=== PATIENT | female | born 1950 | race Caucasian/White ===

== ENCOUNTER 2016-09-27 17:14 | Emergency (ER) | payer OTHER ==
[2016-09-27] MEDS ORDERED: HYDROmorphONE/DILAUDID 1 MG/ML SYR IVP ONE (17:34)
[2016-09-27] MEDS ORDERED: NS 1,000 ML IV ONE (17:34)
[2016-09-27] MEDS ORDERED: ONDANSETRON 4 MG/2 ML VIAL IVP ONE (17:34)
--- NOTE | 2016-09-27 17:37 | EDPHY ---
H & P Time Seen by Provider: 09/27/16 17:25 HPI/ROS: CHIEF COMPLAINT: Abdominal pain HISTORY OF PRESENT ILLNESS: the patient is a 66-year-old female who comes to the emergency department requesting a CT scan to evaluate for diverticulitis. She has a history of diverticulitis. She is prescribed antibiotics by Dr. Yang that she can take p.r.n. for pain but she states that she is getting tired of this and would like to have her sigmoid removed. Dr. Yang recommended she come here for CT scan. She has chronic pain in the region but it increased 2 days ago. She states that she had a low-grade fever yesterday unmeasured. She has not had any vomiting or diarrhea. REVIEW OF SYSTEMS: Constitutional: denies: chills, fever, recent illness, recent injury EENTM: denies: blurred vision, double vision, nose congestion Respiratory: denies: cough, shortness of breath Cardiac: denies: chest pain, irregular heart rate, lightheadedness, palpitations Gastrointestinal/Abdominal: See HPI Genitourinary: denies: dysuria, frequency, hematuria, pain Musculoskeletal: denies: joint pain, muscle pain Skin: denies: lesions, rash, jaundice, bruising Neurological: denies: headache, numbness, paresthesia, tingling, dizziness, weakness Hematologic/Lymphatic: denies: blood clots, easy bleeding, easy bruising Immunologic/allergic: denies: HIV/AIDS, transplant EXAM: GENERAL: Well-appearing, well-nourished and in no acute distress. HEAD: Atraumatic, normocephalic. EYES: Pupils equal round and reactive to light, extraocular movements intact, sclera anicteric, conjunctiva are normal. ENT: TMs normal, nares patent, oropharynx clear without exudates. Moist mucous membranes. NECK: Normal range of motion, supple without lymphadenopathy or JVD. LUNGS: Breath sounds clear to auscultation bilaterally and equal. No wheezes rales or rhonchi. HEART: Regular rate and rhythm without murmurs, rubs or gallops. ABDOMEN: Soft, nontender, normoactive bowel sounds. No guarding, no rebound. No masses appreciated. BACK: No CVA tenderness, no spinal tenderness, step-offs or deformities EXTREMITIES: Normal range of motion, no pitting or edema. No clubbing or cyanosis. NEUROLOGICAL: Cranial nerves II through XII grossly intact. Normal speech, normal gait. 5/5 strength, normal movement in all extremities, normal sensation PSYCH: Normal mood, normal affect. SKIN: Warm, dry, normal turgor, no visible rashes or lesions. Source: Patient Exam Limitations: No limitations - Medical/Surgical History Hx Asthma: No Hx Chronic Respiratory Disease: Yes Hx Diabetes: No Hx Cardiac Disease: No Hx Renal Disease: No Hx Cirrhosis: No Hx Alcoholism: No Hx HIV/AIDS: No Hx Splenectomy or Spleen Trauma: No Other PMH: Diverticulitis, spinal surgeries, parathyroidectomy, COPD, Asthma, salivary gland dysfunction, melanoma - Family History Significant Family History: No pertinent family hx - Social History Smoking Status: Current every day smoker Alcohol Use: Sober Drug Use: None Constitutional: Initial Vital Signs Temperature (C) 37.2 C 09/27/16 17:36 Heart Rate 95 09/27/16 17:36 Respiratory Rate 20 09/27/16 17:36 Blood Pressure 138/91 H 09/27/16 17:36 O2 Sat (%) 93 09/27/16 17:36 O2 Delivery Mode Room Air Allergies/Adverse Reactions: Penicillins Allergy (Intermediate, Verified 09/27/16 17:33) Rash pregabalin [From Lyrica] Allergy (Intermediate, Verified 09/27/16 17:33) EXTREMITIES EDEMA tramadol Allergy (Unknown, Verified 09/27/16 17:33) morphine Allergy (Verified 09/27/16 17:33) BODY SPASMS ENVIRONMENTAL Allergy (Mild, Uncoded 12/26/14 21:26) STUFFY NOSE/COUGH/SORE THROAT Home Medications: Medication Instructions Recorded Ambien 10/20/10 BUPROPION HCL 10/20/10 Calcium Carbonate 10/20/10 Cipro 10/20/10 GINSENG 10/20/10 GLUCOSAMINE HCL 10/20/10 MAGNESIUM 10/20/10 MSM 10/20/10 Multivitamins,Therapeutic 10/20/10 OXYCODONE HCL 10/20/10 Pilocarpine HCl 10/20/10 Supplements 10/20/10 VITAMIN D 10/20/10 Valium 10/20/10 Amoxicillin/Clavulanate Pot 875 mg PO BID #20 tab 09/27/16 [Augmentin 875 MG TAB (RX)] Disulfiram 09/27/16 Medical Decision Making - Diagnostics Imaging Results: Imaging Impressions Abdomen CT 09/27/16 17:34 Impression: 1. Extensive colonic diverticulosis, without definite diverticulitis. 2. Large amount of fecal material in the right colon, query constipation. 3. See above report for additional findings. Results called and discussed with Yaya Roth M.D., on September 27, 2016 at 1917 hours. ED Course/Re-evaluation: 7:20 p.m. we discussed the CT lab results which are reassuring. I will start the patient on Augmentin for her pain and frequent bouts of diverticulitis. She is happy with this plan. She is planning to follow up with Dr. Glen Escobar for partial colectomy. She is not allergic to penicillins. She states that she had penicillin a month ago and did fine. Differential Diagnosis: Partial list of the Differential diagnosis considered include but were not limited to; diverticulitis, hernia and although unlikely based on the history and physical exam, I also considered appendicitis, ischemia, aneurysm, dissection. I discussed these differential diagnoses and the plan with the patient as well as the usual and expected course. The patient understands that the diagnosis is provisional and that in medicine we are not always correct and that further workup is often warranted. Usual and customary warnings were given. All of the patient's questions were answered. The patient was instructed to return to the emergency department should the symptoms at all worsen or return, otherwise to followup with the physician as we discussed. - Data Points Laboratory Results: Laboratory Results 09/27/16 17:45 09/27/16 17:45 09/27/16 09/27/16 17:45 17:45 WBC 6.24 10^3/uL 10^3/uL (3.80-9.50) RBC 4.39 10^6/uL 10^6/uL (4.18-5.33) Hgb 13.9 g/dL g/dL (12.6-16.3) Hct 40.3 % % (38.0-47.0) MCV 91.8 fL fL (81.5-99.8) MCH 31.7 pg pg (27.9-34.1) MCHC 34.5 g/dL g/dL (32.4-36.7) RDW 12.3 % % (11.5-15.2) Plt Count 276 10^3/uL 10^3/uL (150-400) MPV 10.6 fL fL (8.7-11.7) Neut % (Auto) 54.6 % % (39.3-74.2) Lymph % (Auto) 32.5 % % (15.0-45.0) Jessamine % (Auto) 9.8 % % (4.5-13.0) Eos % (Auto) 1.9 % % (0.6-7.6) Baso % (Auto) 1.0 % % (0.3-1.7) Nucleat RBC Rel Count 0.0 % % (0.0-0.2) Absolute Neuts (auto) 3.41 10^3/uL 10^3/uL (1.70-6.50) Absolute Lymphs (auto) 2.03 10^3/uL 10^3/uL (1.00-3.00) Absolute Monos (auto) 0.61 10^3/uL 10^3/uL (0.30-0.80) Absolute Eos (auto) 0.12 10^3/uL 10^3/uL (0.03-0.40) Absolute Basos (auto) 0.06 10^3/uL 10^3/uL (0.02-0.10) Absolute Nucleated RBC 0.00 10^3/uL 10^3/uL (0-0.01) Immature Gran % 0.2 % % (0.0-1.1) Immature Gran # 0.01 10^3/uL 10^3/uL (0.00-0.10) Sodium 141 mEq/L mEq/L (134-144) Potassium 4.4 mEq/L mEq/L (3.5-5.2) Chloride 102 mEq/L mEq/L (97-110) Carbon Dioxide 25 mEq/l mEq/l (22-31) Anion Gap 14 mEq/L mEq/L (8-16) BUN 19 mg/dL mg/dL (7-23) Creatinine 0.8 mg/dL mg/dL (0.6-1.0) Estimated GFR > 60 Glucose 126 mg/dL H mg/dL (70-100) Calcium 9.9 mg/dL mg/dL (8.5-10.4) Total Bilirubin 0.5 mg/dL mg/dL (0.1-1.4) Conjugated Bilirubin 0.2 mg/dL mg/dL (0.0-0.5) Unconjugated Bilirubin 0.3 mg/dL mg/dL (0.0-1.1) AST 41 IU/L IU/L (14-46) ALT 75 IU/L H IU/L (9-52) Alkaline Phosphatase 69 IU/L IU/L (38-126) Total Protein 7.4 g/dL g/dL (6.3-8.2) Albumin 4.5 g/dL g/dL (3.5-5.0) Lipase 80.0 IU/L IU/L (23-300) Medications Given: Discontinued Medications Amoxicillin/Clavulanate Potassium (Augmentin 875mg) 875 mg PO EDNOW ONE PRN Reason: Protocol Stop: 09/27/16 19:22 Last Admin: 09/27/16 19:51 Dose: 875 mg Hydromorphone HCl (Dilaudid) 0.5 mg IVP EDNOW ONE Stop: 09/27/16 17:35 Last Admin: 09/27/16 18:01 Dose: 0.5 mg Sodium Chloride (Ns) 1,000 mls @ 0 mls/hr IV ONCE ONE PRN Reason: Wide Open Stop: 09/27/16 17:35 Last Admin: 09/27/16 18:02 Dose: 1,000 mls Ondansetron HCl (Zofran) 4 mg IVP EDNOW ONE Stop: 09/27/16 17:35 Last Admin: 09/27/16 18:01 Dose: 4 mg Departure - Departure Disposition: Home, Routine, Self-Care Clinical Impression: Diverticulitis Qualifiers: Diverticulitis site: large intestine Diverticulitis bleeding: without bleeding Diverticulitis complication: with perforation Qualified Code(s): K57.20 - Diverticulitis of large intestine with perforation and abscess without bleeding Condition: Fair Instructions: Diverticulitis (ED) Referrals: Gibson Yang MD [Primary Care Provider] - As per Instructions Glen Escobar MD [Medical Doctor] - As per Instructions Prescriptions: Amoxicillin/Clavulanate Pot [Augmentin 875 MG TAB (RX)] 875 mg PO BID #20 tab
[2016-09-27 17:38] VITALS: RESP 20
[2016-09-27] MEDS ORDERED: IOPAMIDOL (ISOVUE-300) 100 ML BTL IV ONE (17:40)
[2016-09-27 17:56] LABS: % IMMATURE GRANULYOCYTES 0.2 % (0.0-1.1); ABSOLUTE IMMATURE GRANULOCYTES 0.01 10^3/uL (0.00-0.10); ADD DIFF? NO; ADD MORPH? NO; ADD SCAN? NO; ATYPICAL LYMPHOCYTE FLAG 10 (0-99); FRAGMENT RBC FLAG 0 (0-99); HEMATOCRIT 40.3 % (38.0-47.0); HEMOGLOBIN 13.9 g/dL (12.6-16.3); LEFT SHIFT FLG 0 (0-99); LIPEMIA HEMOLYSIS FLAG 90 (0-99); MEAN CELL HEMOGLOBIN 31.7 pg (27.9-34.1); MEAN CELL HEMOGLOBIN CONCENTR. 34.5 g/dL (32.4-36.7); MEAN CELL VOLUME 91.8 fL (81.5-99.8); MEAN PLATELET VOLUME 10.6 fL (8.7-11.7); PLATELET CLUMPS FLAG 10 (0-99); PLATELET COUNT 276 10^3/uL (150-400); RED BLOOD CELL COUNT 4.39 10^6/uL (4.18-5.33); RED CELL DISTRIBUTION WIDTH 12.3 % (11.5-15.2)
[2016-09-27 18:10] LABS: ALANINE AMINOTRANSFERASE 75 IU/L (9-52); ALBUMIN 4.5 g/dL (3.5-5.0); ALKALINE PHOSPHATASE 69 IU/L (38-126); ANION GAP 14 mEq/L (8-16); ASPARTATE AMINOTRANSFERASE 41 IU/L (14-46); BILIRUBIN,TOTAL 0.5 mg/dL (0.1-1.4); BILIRUBIN-CONJUGATED 0.2 mg/dL (0.0-0.5); BILIRUBIN-UNCONJUGATED 0.3 mg/dL (0.0-1.1); CALCIUM 9.9 mg/dL (8.5-10.4); CARBON DIOXIDE 25 mEq/l (22-31); CHLORIDE 102 mEq/L (97-110); CREATININE 0.8 mg/dL (0.6-1.0); GLOMERULAR FILTRATION RATE > 60; GLUCOSE 126 mg/dL (70-100); POTASSIUM 4.4 mEq/L (3.5-5.2); SODIUM 141 mEq/L (134-144); TOTAL PROTEIN 7.4 g/dL (6.3-8.2)
[2016-09-27] MEDS ORDERED: AMOXICILLIN/CLAVULANATE POT 875/125 MG TAB PO ONE (19:21)
[2016-09-27 19:56] VITALS: BP 144/78; PULSE 65; TEMP 97.7; O2SAT 95
== END 2016-09-27 20:01 | disposition home or self-care (01) ==
LOC: CED 17:14
DX: K57.20 Diverticulitis of large intestine with perforation and abscess without bleeding (principal); F17.200 Nicotine dependence, unspecified, uncomplicated; J45.909 Unspecified asthma, uncomplicated; Z85.820 Personal history of malignant melanoma of skin
CPT/HCPCS: 74177-PO; 80048-PO; 80076-PO; 83690-PO; 85025-PO; 96374; J1170; J2405; Q9967

== ENCOUNTER 2016-12-14 08:21 | Inpatient (IN) | payer OTHER ==
--- NOTE | 2016-12-14 07:25 | PDGENHP ---
History and Physical - Chief Complaint recurrent diverticulitis - History of Present Illness 66-year-old female referred to me for long-standing history of diverticulitis. Patient states that her initial episode was 20 years ago, at that point in time she does state that she was hospitalized and placed on IV antibiotics. Since that initial episode, the patient states that she tended have at least a yearly episode until the past 2 years where she states that they have been more frequent. She states that over the past few years she has been on antibiotics at least a times on outpatient basis. Her worse flare was sometime in September. Since that time, the patient has been on maintenance oral antibiotic therapy. She states that if she is not on antibiotics she continues to have issues. History Information - Allergies/Home Medication List Allergies/Adverse Reactions: Penicillins Allergy (Intermediate, Verified 09/27/16 17:33) Rash pregabalin [From Lyrica] Allergy (Intermediate, Verified 09/27/16 17:33) EXTREMITIES EDEMA tramadol Allergy (Unknown, Verified 09/27/16 17:33) ciprofloxacin Allergy (Verified 12/13/16 15:50) morphine Allergy (Verified 09/27/16 17:33) BODY SPASMS ENVIRONMENTAL Allergy (Mild, Uncoded 12/26/14 21:26) STUFFY NOSE/COUGH/SORE THROAT Home Medications: Ambien 10/20/10 [Last Taken 10/19/10] BUPROPION HCL 10/20/10 [Last Taken 10/20/10] Calcium Carbonate 10/20/10 [Last Taken 10/20/10] GINSENG 10/20/10 [Last Taken 10/20/10] GLUCOSAMINE HCL 10/20/10 [Last Taken 10/20/10] MAGNESIUM 10/20/10 [Last Taken 10/20/10] Multivitamins,Therapeutic 10/20/10 [Last Taken 10/20/10] OXYCODONE HCL 10/20/10 [Last Taken 10/20/10] Pilocarpine HCl 10/20/10 [Last Taken 10/20/10] VITAMIN D 10/20/10 [Last Taken 10/20/10] Valium 10/20/10 [Last Taken 10/20/10] Acyclovir 12/13/16 [Last Taken Unknown] Albuterol 5 mg/ml INH 12/13/16 [Last Taken Unknown] Fluticasone Nasal 12/13/16 [Last Taken Unknown] Gabapentin 12/13/16 [Last Taken Unknown] Levothyroxine 12/13/16 [Last Taken Unknown] Methylphenidate 12/13/16 [Last Taken Unknown] Metronidazole 12/13/16 [Last Taken Unknown] Ranitidine HCl 12/13/16 [Last Taken Unknown] Symbicort 160-4.5 Mcg Inh (*) 12/13/16 [Last Taken Unknown] I have personally reviewed and updated: family history, medical history, social history, surgical history Past Medical History: ADD, alcoholism, anxiety, COPD, GERD, hyperparathyroidism , hypothyroidism - Surgical History Additional surgical history: Cervical fusion, EGD, fibroid ectomy, parathyroidectomy - Family History Positive for: non-pertinent - Social History Smoking Status: Heavy smoker Alcohol Use: Sober Additional social history: On Antabuse for chronic alcoholism Review of Systems ROS: 10pt was reviewed & negative except for what was stated in HPI & below Physical Exam Constitutional: no apparent distress Eyes: PERRL Ears, Nose, Mouth, Throat: moist mucous membranes Cardiovascular: regular rate and rhythym Respiratory: no respiratory distress Gastrointestinal: normoactive bowel sounds Skin: warm Musculoskeletal: full muscle strength, no muscle tenderness Neurologic: AAOx3, sensation intact bilaterally Psychiatric: interacting appropriately Lymph, Heme, Immunologic: no cervical LAD Assessment & Plan Assessment: 66-year-old female with recurrent diverticulitis Plan: I personally reviewed the patient's recent CT scan with her showing no complications at this time. Given the fact that she has recurrent disease in is now on maintenance antibiotic therapy I recommended sigmoidectomy. After explaining the risks benefits and alternatives she wishes to proceed. She will complete a bowel prep prior to the operation.
[2016-12-14] MEDS ORDERED: BUPIVACAINE/EPI 0.25% 30 ML SDV ONE (08:25)
[2016-12-14] MEDS ORDERED: ERTAPENEM 1 GM in NS 100 ML IV ONE (08:37)
[2016-12-14] MEDS ORDERED: LR 1,000 ML IV ONE (08:52)
[2016-12-14] MEDS ORDERED: LIDOCAINE 1% 2 ML INJ ID PRN (08:52)
--- NOTE | 2016-12-14 09:48 | PDANEPAE ---
ANE History of Present Illness Laparoscopic colon resection ANE Past Medical History - Cardiovascular History Hx Hypertension: No Hx Arrhythmias: No Hx Chest Pain: No Hx Coronary Artery / Peripheral Vascular Disease: No Hx CHF / Valvular Disease: No Hx Palpitations: No - Pulmonary History Hx COPD: Yes Hx Asthma/Reactive Airway Disease: Yes Hx Recent Upper Respiratory Infection: No Hx Oxygen in Use at Home: No Hx Sleep Apnea: No Sleep Apnea Screening Result - Last Documented: Positive Pulmonary History Comment: INHALERS - Neurologic History Hx Cerebrovascular Accident: No Hx Seizures: Yes Hx Dementia: No Neurologic History Comment: SEIZURE X1 YEARS AGO - ALCOHOL RELATED - Endocrine History Hx Diabetes: Yes Hypothyroid: Yes Obesity: no Endocrine History Comment: HYPOTHYROID - Renal History Hx Renal Disorders: No - Liver History Hx Hepatic Disorders: No - Neurological & Psychiatric Hx Hx Neurological and Psychiatric Disorders: Yes Neurological / Psychiatric History Comment: ANXIETY & DEPRESSION. PTSD - Cancer History Hx Cancer: Yes Cancer History Comment: MELANOMA R LEG - Congenital Disorder History Hx Congenital Disorders: No - GI History GERD: moderate Hx Gastrointestinal Disorders: Yes Gastrointestinal History Comment: GERD. HIATAL HERNIA - Other Health History Other Health History: OSTEOPENIA. DIVERTICULITIS. DIVERTICULOSIS. PRONE TO THRUSH FOLLOWING INTUBATION - Chronic Pain History Chronic Pain: Yes (BACK & NECK) - Surgical History Prior Surgeries: CERVICAL FUSION X3. LUMBAR FUSION X2. EGD W/BIOPSY. FIBROIDECTOMY. PARATHYROIDECTOMY ANE Review of Systems - Exercise capacity METS (RN): 4 METS ANE Patient History - Allergies Allergies/Adverse Reactions: Penicillins Allergy (Intermediate, Verified 09/27/16 17:33) Rash pregabalin [From Lyrica] Allergy (Intermediate, Verified 09/27/16 17:33) EXTREMITIES EDEMA tramadol Allergy (Unknown, Verified 09/27/16 17:33) ciprofloxacin Allergy (Verified 12/13/16 15:50) morphine Allergy (Verified 09/27/16 17:33) BODY SPASMS ENVIRONMENTAL Allergy (Mild, Uncoded 12/26/14 21:26) STUFFY NOSE/COUGH/SORE THROAT - Home Medications Home Medications: Ambien 10/20/10 [Last Taken 12/12/16] BUPROPION HCL 10/20/10 [Last Taken 12/14/16 05:30] Calcium Carbonate 10/20/10 [Last Taken 12/10/16] GINSENG 10/20/10 [Last Taken 10/20/10] GLUCOSAMINE HCL 10/20/10 [Last Taken 12/11/16] MAGNESIUM 10/20/10 [Last Taken 12/13/16] Multivitamins,Therapeutic 10/20/10 [Last Taken 12/11/16] OXYCODONE HCL 10/20/10 [Last Taken 12/14/16 04:00] Pilocarpine HCl 10/20/10 [Last Taken 12/14/16 05:30] VITAMIN D 10/20/10 [Last Taken 12/11/16] Valium 10/20/10 [Last Taken 12/14/16 05:30] Acyclovir 12/13/16 [Last Taken 12/14/16 05:30] Albuterol 5 mg/ml INH 12/13/16 [Last Taken 12/14/16 05:30] Fluticasone Nasal 12/13/16 [Last Taken 12/14/16 05:30] Gabapentin 12/13/16 [Last Taken 12/14/16 04:00] Levothyroxine 12/13/16 [Last Taken 12/14/16 05:30] Methylphenidate 12/13/16 [Last Taken 12/14/16 04:00] Metronidazole 12/13/16 [Last Taken 12/14/16 05:30] Ranitidine HCl 12/13/16 [Last Taken 12/14/16 05:30] Symbicort 160-4.5 Mcg Inh (*) 12/13/16 [Last Taken 12/14/16 05:30] - NPO status NPO Since - Liquids (Date): 12/14/16 NPO Since - Liquids (Time): 02:00 NPO Since - Solids (Date): 12/13/16 NPO Since - Solids (Time): 10:00 - Anes Hx Anes Hx: no prior problems - Smoking Hx Smoking Status: Current every day smoker - Alcohol Use Alcohol Use: Occasionally - Family Anes Hx Family Hx Anesthesia Complications: NEG ANE Labs/Vital Signs - Vital Signs Blood Pressure: 127/73 Heart Rate: 66 Respiratory Rate: 14 O2 Sat (%): 96 Height: 163.83 cm Weight: 63.503 kg ANE Physical Exam - Airway Mallampati Score: Class 3 - Pulmonary Pulmonary: no respiratory distress - Cardiovascular Cardiovascular: regular rate and rhythym, no murmur, rub, or gallop - ASA Status ASA Status: III ANE Anesthesia Plan Anesthesia Plan: general endotracheal anesthesia
[2016-12-14] MEDS ORDERED: MIDAZOLAM 2 MG/2 ML VIAL ONE (09:51)
[2016-12-14] MEDS ORDERED: MIDAZOLAM 2 MG/2 ML VIAL IVP ONE (09:56)
[2016-12-14] MEDS ORDERED: HYDROmorphONE/DILAUDID 2 MG/ML INJ ONE (09:59)
[2016-12-14] MEDS ORDERED: fentaNYL 100 MCG/2 ML INJ ONE ×4 (09:59→12:53)
[2016-12-14] MEDS ORDERED: PROPOFOL/EMULSION 500 MG/50 ML BOTTLE IV ONE (10:00)
[2016-12-14] MEDS ORDERED: PROPOFOL 200 MG/20 ML VIAL ONE (10:00)
[2016-12-14] MEDS ORDERED: ONDANSETRON 4 MG/2 ML VIAL ONE ×2 (10:35→12:08)
[2016-12-14] MEDS ORDERED: DEXAMETHASONE 4 MG/ML VIAL ONE (10:35)
[2016-12-14] MEDS ORDERED: ROCURONIUM 50 MG/5 ML VIAL ONE (10:35)
[2016-12-14] MEDS ORDERED: epHEDrine SULFATE 10 MG/ML SYR ONE (10:35)
[2016-12-14] MEDS ORDERED: LIDOCAINE 2% 5 ML SDV ONE (10:35)
[2016-12-14] MEDS ORDERED: LABETALOL HCL 50 MG/10 ML SYR ONE (11:11)
[2016-12-14] MEDS ORDERED: GLYCOPYRROLATE 0.2 MG/1 ML VIAL ONE (12:08)
[2016-12-14] MEDS ORDERED: SUGAMMADEX SODIUM 200 MG/2 ML VIAL IVP ONE (12:09)
[2016-12-14] MEDS ORDERED: ONDANSETRON 4 MG/2 ML VIAL IVP PRN (12:32)
[2016-12-14] MEDS ORDERED: NALOXONE HCL 0.4 MG/ML INJ IVP PRN ×2 (12:32→12:51)
[2016-12-14] MEDS ORDERED: HYDROmorphONE/DILAUDID 1 MG/ML SYR IVP PRN (12:32)
[2016-12-14] MEDS ORDERED: PROMETHAZINE HCL 25 MG/ML INJ IVP PRN (12:32)
[2016-12-14] MEDS ORDERED: OXYCODONE/APAP 5/325 TAB PO PRN (12:47)
--- NOTE | 2016-12-14 12:47 | POSTOPPROG ---
Post Op Note Date of Operation: 12/14/16 Surgeon: Sergio Williamson Critical Care Nurse: Julio Galdamez MD, Jefferson Botello, MINNIE Anesthesiologist: Festus Anesthesia: GET(General Endotracheal) Pre-op Diagnosis: Diverticulitis Post-op Diagnosis: same Procedure: laparoscopic sigmoid colectomy Findings: tics to mid descending colon, Leak rest neg x2 Inf/Abcess present in the surg proc area at time of surgery?: No EBL: Minimal Specimen(s): Sigmoid colon with anastomotic rings
[2016-12-14] MEDS: fentaNYL 100 MCG/2 ML INJ IVP PRN ×2 (12:56→13:19)
[2016-12-14] MEDS ORDERED: D5W 1/2 NS W/ 20 KCl/L 1,000 ML IV SCH (13:00)
[2016-12-14] MEDS ORDERED: OPIUM/BELLADONNA ALKALO SUPP PR ONE (13:25)
[2016-12-14] MEDS: HYDROmorphONE/DILAUDID 6 MG/30 ML PCA IV PRN (14:55)
[2016-12-14] MEDS ORDERED: MAGNESIUM HYDROXIDE 30 ML UDCUP PO PRN (17:26)
[2016-12-14] MEDS ORDERED: PHENOL 177 ML THROAT SPRAY PO PRN (17:26)
[2016-12-14] MEDS ORDERED: POLYETHYLENE GLYCOL 3350 17 GM PKT PO PRN (17:26)
[2016-12-14] MEDS ORDERED: BISACODYL 10 MG SUPP PR PRN (17:26)
[2016-12-14] MEDS ORDERED: ZOLPIDEM TARTRATE 5 MG TAB PO PRN (17:27)
[2016-12-14] MEDS ORDERED: ALBUTEROL 200 PUFFS/18 GM MDI IH PRN (17:45)
[2016-12-14] MEDS: NICOTINE POLACRILEX 2 MG GUM B PRN (18:10)
[2016-12-14] MEDS ORDERED: FAMOTIDINE 20 MG TAB PO SCH (21:00)
[2016-12-14] MEDS: ACYCLOVIR 400 MG TAB PO SCH (21:16)
[2016-12-14] MEDS: GABAPENTIN 400 MG CAP PO SCH (21:16)
[2016-12-14] MEDS: SENNOSIDES/DOCUSATE SODIUM TAB PO SCH (21:17)
[2016-12-14] MEDS: BUDESONIDE/FORMOTEROL 160/4.5 60 PUFFS/MDI IH SCH (21:35)
--- NOTE | 2016-12-15 00:24 | GOP ---
[f rep st] OPERATIVE REPORT DATE OF OPERATION: 12/14/2016 SURGEON: Sergio Williamson MD INNOVATION ANALYST: Julio Galdamez MD, Jefferson Botello PA-C. ANESTHESIA: General endotracheal. ANESTHESIOLOGIST: Elisa Mortensen MD PREOPERATIVE DIAGNOSIS: Recurrent diverticulitis. POSTOPERATIVE DIAGNOSIS: Recurrent diverticulitis. PROCEDURE PERFORMED: 1. Laparoscopic sigmoid colectomy. 2. Laparoscopic mobilization of splenic flexure. FINDINGS: Tics to about the level of the mid descending colon. The entire descending colon to the level of the reflection was taken down. Anastomosis with a 29 mm EEA stapler performed with negative leak test x2. SPECIMENS: Sigmoid colon with anastomotic rings ESTIMATED BLOOD LOSS: 10 cc. DESCRIPTION OF PROCEDURE: The patient was greeted in the preoperative suite. Once again, risks, benefits, and alternatives were discussed. The consent was then signed. She was then brought back to the operative suite, placed on the OR table in supine position. After all anesthesia machines, including SCDs, were on and functioning a [employer] time-out was performed. After successful induction of general anesthesia, the patient was then appropriately prepped and draped in the typical sterile fashion and a low lithotomy position with all pressure points appropriately placed and padded. Calvin catheter was placed sterilely. I entered the abdomen via a cutdown superior to the umbilicus and insufflated using the Veress needle to 15 mmHg which was well tolerated by the patient. Through this site, I inserted a 5 mm port using the Visiport technique. I then inserted 2 additional ports, one 12 mm in the right lower quadrant and one 5 mm in the right upper quadrant, both under direct visualization. I then turned my attention toward the patient's left pelvis where I identified the sigmoid colon. There was a fair amount of adhesions of the sigmoid colon to the left pelvic wall, but the remainder of it was fairly adhesion free. The sigmoid colon was fairly redundant and laid into the pelvis. I began mobilization of the colon via the white line of Toldt and took my mobilization all the way up to the splenic flexure which was successfully taken down with the Harmonic scalpel. After mobilization of the splenic flexure, I carried my mobilization inferiorly, all the way down to the peritoneal reflection. I identified the rectosigmoid junction and began taking the mesentery at this site. I then, from an inferior to superior fashion in a medial to lateral approach, approached the mesentery and ligated it using the Harmonic scalpel. I identified the left ureter in its place and protected it throughout this dissection. I brought my dissection all the way up to an area where there were no longer any tics identified at the level of the mid descending colon. Once this was done, I transected the distal colon at the rectosigmoid junction at the level of the sacral promontory at the peritoneal reflection. After this was done, I made a small Pfannenstiel incision, carried it down through the subcutaneous tissue and spread the muscle via its direction of fibers. I placed a wound protector and delivered the colon through this site. I once again inspected it and identified a place proximally where there were no adhesions and divided the colon there. It was then passed off. Through this division site, I then placed a pursestring suture through which I serially passed dilators and selected the 29. I placed a 29 mm anvil into it and allowed the specimen to fall back into the abdominal cavity. I then re- insufflated through the rectum. I again serially passed dilators and placed the 29 mm stapler through the rectal stump. I delivered the firing anvil and attached it to the other end of the stapler already in the proximal colon. Firing the stapler provided a good strong anastomosis. The stapler was then removed. The anastomotic donuts were inspected on the back table and noted to be intact and thick without any defect. A leak test was then performed which was negative x2. I then inspected the entire transverse to descending colon to its anastomotic site and made sure that it appeared to be viable, hemostatic, and without any kinks and/or twists. Once this was done, I irrigated the abdomen with warm normal saline. I then infiltrated all port sites with 0.25% Marcaine with epinephrine to provide a field block. I then desufflated. I closed the peritoneum of my Pfannenstiel incision and closed the fascia with a running 0 PDS suture. The skin of all sites was then closed with running 4-0 Monocryl. Dermabond and sterile dressings were placed. The patient was then extubated in the operative suite and taken to the PACU in satisfactory condition. DRAINS: None. COUNTS: All counts were reported as correct x2. /[id number]/MODL MTDD
[2016-12-15 05:02] LABS: % IMMATURE GRANULYOCYTES 0.3 % (0.0-1.1); ABSOLUTE IMMATURE GRANULOCYTES 0.03 10^3/uL (0.00-0.10); ADD DIFF? NO; ADD MORPH? NO; ADD SCAN? NO; ATYPICAL LYMPHOCYTE FLAG 0 (0-99); FRAGMENT RBC FLAG 0 (0-99); HEMATOCRIT 33.7 % (38.0-47.0); HEMOGLOBIN 11.3 g/dL (12.6-16.3); LEFT SHIFT FLG 0 (0-99); LIPEMIA HEMOLYSIS FLAG 80 (0-99); MEAN CELL HEMOGLOBIN 31.6 pg (27.9-34.1); MEAN CELL HEMOGLOBIN CONCENTR. 33.5 g/dL (32.4-36.7); MEAN CELL VOLUME 94.1 fL (81.5-99.8); MEAN PLATELET VOLUME 11.1 fL (8.7-11.7); PLATELET CLUMPS FLAG 0 (0-99); PLATELET COUNT 173 10^3/uL (150-400); RED BLOOD CELL COUNT 3.58 10^6/uL (4.18-5.33); RED CELL DISTRIBUTION WIDTH 12.5 % (11.5-15.2)
[2016-12-15 05:05] LABS: ANION GAP 8 mEq/L (8-16); CALCIUM 8.1 mg/dL (8.5-10.4); CARBON DIOXIDE 23 mEq/l (22-31); CHLORIDE 112 mEq/L (97-110); CREATININE 0.7 mg/dL (0.6-1.0); GLOMERULAR FILTRATION RATE > 60; GLUCOSE 120 mg/dL (70-100); POTASSIUM 4.8 mEq/L (3.5-5.2); SODIUM 143 mEq/L (134-144)
[2016-12-15] MEDS: GABAPENTIN 400 MG CAP PO SCH ×3 (06:00→21:44)
[2016-12-15] MEDS: LEVOTHYROXINE 50 MCG TAB PO SCH (06:00)
[2016-12-15] MEDS ORDERED: ERTAPENEM 1 GM in NS 100 ML IV ONE (09:00)
[2016-12-15] MEDS: RANITIDINE HCL 150 MG/10 ML UDCUP PO SCH ×2 (09:17→21:44)
[2016-12-15] MEDS: buPROPion XL 150 MG TAB PO SCH ×2 (09:17)
[2016-12-15] MEDS: SENNOSIDES/DOCUSATE SODIUM TAB PO SCH ×2 (09:17→21:45)
[2016-12-15] MEDS: ACYCLOVIR 400 MG TAB PO SCH ×3 (09:17→21:45)
[2016-12-15] MEDS: FLUTICASONE NASAL 120 SPRAYS/16 GM MDI EACHNARE SCH (09:18)
[2016-12-15] MEDS: BUDESONIDE/FORMOTEROL 160/4.5 60 PUFFS/MDI IH SCH ×3 (10:02→20:44)
--- NOTE | 2016-12-15 12:16 | SOAPPROG ---
SOAP Progress Note Assessment/Plan: Assessment/Plan: POD#1 s/p lap sigmoidectomy - VSS, HDS - Pain controlled, start PO narcotics when tolerating diet - Has good bowel sounds and tolerating clears. Will ADAT today, advised to go slow. Will see how she does - OOB, walk, chair time - Last dose abx today, SCDs on at all times - Nothing per rectum, no exceptions - 12/15/16 12:13 Subjective: Feeling better, pain controlled. Having some gas Objective: Vital Signs Temp Pulse Resp BP Pulse Ox 36.9 C 70 16 103/63 90 L 12/15/16 10:00 12/15/16 10:00 12/15/16 10:00 12/15/16 10:00 12/15/16 10:00 Laboratory Results 12/15/16 04:35 12/15/16 04:35 12/14/16 12/15/16 12/16/16 05:59 05:59 05:59 Intake Total 3939 Output Total 3070 300 Balance 869 -300 ICD10 Worksheet Patient Problems: Problems Problem Status Onset Alcohol abuse Acute Depression Acute Diverticulitis Acute Hyperparathyroidism Acute Hypothyroid Acute - ICD10 Problem Qualifiers (1) Diverticulitis Qualifiers: Diverticulitis site: D Diverticulitis bleeding: D Diverticulitis complication: D (2) Alcohol abuse (3) Hyperparathyroidism (4) Depression Qualifiers: Depression Type: D Major depression recurrence: M Active/Remission status : A Major depression episode severity: M Psychotic features: P Trimester: T (5) Hypothyroid Qualifiers: Hypothyroidism type: H
--- NOTE | 2016-12-15 17:15 | POSTANESTH ---
Post Anesthetic Evaluation Cardiovascular Status: Normal, Stable Respiratory Status: Normal, Stable Level of Consciousness/Mental Status: Can Participate in Eval Pain Control: Adequate, Prn Tx Ordered Nausea/Vomiting Control: Adequate, Prn Tx Ordered Complications Possibly Related to Anesthesia: None Noted
[2016-12-15] MEDS: HYDROmorphONE/DILAUDID 6 MG/30 ML PCA IV PRN (22:14)
[2016-12-16] MEDS: LEVOTHYROXINE 50 MCG TAB PO SCH (05:46)
[2016-12-16] MEDS: NICOTINE POLACRILEX 2 MG GUM B PRN ×2 (06:00→15:20)
[2016-12-16] MEDS: ACYCLOVIR 400 MG TAB PO SCH ×3 (08:22→21:04)
[2016-12-16] MEDS: SENNOSIDES/DOCUSATE SODIUM TAB PO SCH ×2 (08:22→20:38)
[2016-12-16] MEDS: GABAPENTIN 400 MG CAP PO SCH ×3 (08:22→20:38)
[2016-12-16] MEDS: RANITIDINE HCL 150 MG/10 ML UDCUP PO SCH ×2 (08:23→20:37)
[2016-12-16] MEDS: FLUTICASONE NASAL 120 SPRAYS/16 GM MDI EACHNARE SCH (08:24)
[2016-12-16] MEDS: buPROPion XL 150 MG TAB PO SCH ×2 (08:28→08:29)
[2016-12-16] MEDS: BUDESONIDE/FORMOTEROL 160/4.5 60 PUFFS/MDI IH SCH ×2 (10:13→22:06)
--- NOTE | 2016-12-16 10:57 | SOAPPROG ---
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 narcotics - tolerating a regular diet, having bowel function incisions are clean dry and intact, and open to air - OOB, walk, chair time - SCDs on at all times - Nothing per rectum, no exceptions - anticipate that she will be ready for home within the next couple of days, she needs to get out of bed and work with therapy. 12/15/16 12:13 12/16/16 10:56 Subjective: Pain well controlled, passing flatus and having bowel movements Objective: Vital Signs Temp Pulse Resp BP Pulse Ox 37.6 C 88 21 H 139/90 H 91 L 12/16/16 10:00 12/16/16 10:00 12/16/16 10:00 12/16/16 10:00 12/16/16 10:00 Laboratory Results 12/15/16 04:35 12/15/16 04:35 12/15/16 12/16/16 12/17/16 05:59 05:59 05:59 Intake Total 3939 3000 550 Output Total 3070 3700 1200 Balance 599 -114 -139 ICD10 Worksheet Patient Problems: Problems Problem Status Onset Alcohol abuse Acute Depression Acute Diverticulitis Acute Hyperparathyroidism Acute Hypothyroid Acute - ICD10 Problem Qualifiers (1) Diverticulitis Qualifiers: Diverticulitis site: D Diverticulitis bleeding: D Diverticulitis complication: D (2) Alcohol abuse (3) Hyperparathyroidism (4) Depression Qualifiers: Depression Type: D Major depression recurrence: M Active/Remission status : A Major depression episode severity: M Psychotic features: P Trimester: T (5) Hypothyroid Qualifiers: Hypothyroidism type: H
[2016-12-16] MEDS ORDERED: PNEUMOCOCCAL 0.5ML VACCINE VIAL IM ONE (12:21)
[2016-12-16] MEDS: DIAZEPAM 5 MG TAB PO PRN (13:24)
[2016-12-16] MEDS ORDERED: ONDANSETRON 4 MG/2 ML VIAL IVP PRN (14:07)
[2016-12-16] MEDS: oxyCODONE IR 5 MG TAB PO PRN ×2 (15:19→19:10)
[2016-12-16] MEDS: ACETAMINOPHEN 325 MG TAB PO PRN (17:25)
[2016-12-17] MEDS: oxyCODONE IR 5 MG TAB PO PRN ×5 (01:20→18:45)
[2016-12-17] MEDS: GABAPENTIN 400 MG CAP PO SCH ×3 (06:22→21:00)
[2016-12-17] MEDS: LEVOTHYROXINE 50 MCG TAB PO SCH (06:22)
[2016-12-17] MEDS: IBUPROFEN 600 MG TAB PO PRN ×2 (08:24→19:20)
[2016-12-17] MEDS: ACYCLOVIR 400 MG TAB PO SCH ×3 (08:24→21:00)
[2016-12-17] MEDS: RANITIDINE HCL 150 MG/10 ML UDCUP PO SCH ×2 (08:24→21:00)
[2016-12-17] MEDS: buPROPion XL 150 MG TAB PO SCH ×2 (08:25→08:26)
[2016-12-17] MEDS: FLUTICASONE NASAL 120 SPRAYS/16 GM MDI EACHNARE SCH (08:29)
[2016-12-17] MEDS: NICOTINE POLACRILEX 2 MG GUM B PRN (08:35)
[2016-12-17] MEDS: BUDESONIDE/FORMOTEROL 160/4.5 60 PUFFS/MDI IH SCH ×2 (09:04→21:16)
--- NOTE | 2016-12-17 09:20 | SOAPPROG ---
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 We will have therapy evaluate, patient would like either home assistance or SNF. Anticipate discharge tomorrow. 12/15/16 12:13 12/16/16 10:56 12/17/16 09:19 Subjective: Out of bed, pain appears well controlled. Tolerating a regular diet and having bowel function Objective: Vital Signs Temp Pulse Resp BP Pulse Ox 37.3 C 75 16 118/71 95 12/17/16 08:20 12/17/16 09:13 12/17/16 09:13 12/17/16 08:20 12/17/16 09:13 Laboratory Results 12/15/16 04:35 12/15/16 04:35 12/16/16 12/17/16 12/18/16 05:59 05:59 05:59 Intake Total 3000 1300 Output Total 3700 3800 Balance -700 -2500 ICD10 Worksheet Patient Problems: Problems Problem Status Onset Alcohol abuse Acute Depression Acute Diverticulitis Acute Hyperparathyroidism Acute Hypothyroid Acute - ICD10 Problem Qualifiers (1) Diverticulitis Qualifiers: Diverticulitis site: D Diverticulitis bleeding: D Diverticulitis complication: D (2) Alcohol abuse (3) Hyperparathyroidism (4) Depression Qualifiers: Depression Type: D Major depression recurrence: M Active/Remission status : A Major depression episode severity: M Psychotic features: P Trimester: T (5) Hypothyroid Qualifiers: Hypothyroidism type: H
[2016-12-17] MEDS: SENNOSIDES/DOCUSATE SODIUM TAB PO SCH ×2 (09:49→21:00)
[2016-12-17] MEDS: ACETAMINOPHEN 325 MG TAB PO PRN (12:28)
[2016-12-17] MEDS: DIAZEPAM 5 MG TAB PO PRN (12:29)
[2016-12-18] MEDS: GABAPENTIN 400 MG CAP PO SCH (06:07)
[2016-12-18] MEDS: oxyCODONE IR 5 MG TAB PO PRN ×2 (06:07→13:26)
[2016-12-18] MEDS: LEVOTHYROXINE 50 MCG TAB PO SCH (06:07)
[2016-12-18] MEDS: SENNOSIDES/DOCUSATE SODIUM TAB PO SCH (09:25)
[2016-12-18] MEDS: buPROPion XL 150 MG TAB PO SCH ×2 (09:25→09:26)
[2016-12-18] MEDS: ACYCLOVIR 400 MG TAB PO SCH (09:25)
[2016-12-18] MEDS: FLUTICASONE NASAL 120 SPRAYS/16 GM MDI EACHNARE SCH (09:26)
[2016-12-18] MEDS: RANITIDINE HCL 150 MG/10 ML UDCUP PO SCH (09:26)
[2016-12-18] MEDS: IBUPROFEN 600 MG TAB PO PRN (09:34)
[2016-12-18] MEDS: BUDESONIDE/FORMOTEROL 160/4.5 60 PUFFS/MDI IH SCH (10:50)
--- NOTE | 2016-12-18 10:59 | PDDCSUM ---
Discharge Summary Discharge Summary: DISCHARGE SUMMARY Date of Admission December 14 Date of Discharge December 18 DISCHARGE DIAGNOSES -diverticulitis HOSPITAL COURSE The patient was admitted and taken to the operating room where they underwent an uneventful laparoscopic sigmoid colectomy. They were subsequently taken to the PACU and then the general medical floor. The hospital course was uneventful , their diet was advanced to a regular diet which was well tolerated and their pain was well controlled. They were discharged home in stable condition on December 18 DISCHARGE MEDICATIONS Oxycodone DISPOSITION Home FOLLOW UP Follow up with me in the office in 10-14 days for a general post-operative visit
[2016-12-18 11:36] VITALS: BP 117/70; PULSE 80; RESP 12; TEMP 97.5; O2SAT 92
== END 2016-12-18 14:25 | disposition home or self-care (01) | DRG 331 ==
LOC: F3E 08:21
PROVIDERS: ADMIT Surgery; ATTEND Surgery
PROC: 0DTN4ZZ Resection of Sigmoid Colon, Percutaneous Endoscopic Approach (ICD-10-PCS; principal; 2016-12-14 09:45)
DX: K57.32 Diverticulitis of large intestine without perforation or abscess without bleeding (principal); F98.8 Other specified behavioral and emotional disorders with onset usually occurring in childhood and adolescence; F10.20 Alcohol dependence, uncomplicated; J44.9 Chronic obstructive pulmonary disease, unspecified; K21.9 Gastro-esophageal reflux disease without esophagitis; E03.9 Hypothyroidism, unspecified; E21.3 Hyperparathyroidism, unspecified; Z72.0 Tobacco use; Z23 Encounter for immunization
CPT/HCPCS: 97161-GP; 97165-GO; G0009; J1100; J1170; J1335; J2250; J2405; J2704; J3010

== ENCOUNTER → 2018-06-07 | Outpatient (CLI) | payer OTHER | LOC: CIMAGING 14:13 | PROVIDERS: ATTEND Internal Medicine | DX: J40 Bronchitis, not specified as acute or chronic (principal) | CPT/HCPCS: 71046-PO ==

== ENCOUNTER 2018-06-20 09:57 | Day surgery (SDC) | payer OTHER ==
[2018-06-20] MEDS ORDERED: ceFAZolin 2 GM/DEXTROSE 100 ML IV ONE (10:08)
[2018-06-20] MEDS ORDERED: LR 1,000 ML IV ONE (10:09)
[2018-06-20] MEDS ORDERED: EPINEPHrine 1 MG/ML INJ ONE (11:04)
[2018-06-20] MEDS ORDERED: BUPIVACAINE 0.25% 30 ML SDV ONE (11:04)
--- NOTE | 2018-06-20 11:39 | PDHPUP ---
History & Physical Update H&P update statement: This history and physical update is based on an assessment of the patient which was completed after admission or registration (within 24 hours), but prior to the surgery/procedure. H&P update: H&P reviewed & patient examined, no change in patient's condition since H&P completed
--- NOTE | 2018-06-20 11:46 | PDANEPAE ---
ANE History of Present Illness here for knee scope ANE Past Medical History - Cardiovascular History Hx Hypertension: No Hx Arrhythmias: No Hx Chest Pain: No Hx Coronary Artery / Peripheral Vascular Disease: No Hx CHF / Valvular Disease: No Hx Palpitations: No - Pulmonary History Hx COPD: Yes Hx Asthma/Reactive Airway Disease: Yes Hx Recent Upper Respiratory Infection: Yes Hx Oxygen in Use at Home: No Hx Sleep Apnea: No Sleep Apnea Screening Result - Last Documented: Negative Pulmonary History Comment: recent pna 06/06/18 started doxycycline 06/07/18 - Neurologic History Hx Cerebrovascular Accident: No Hx Seizures: Yes Hx Dementia: No Neurologic History Comment: SEIZURE X1 YEARS AGO - ALCOHOL RELATED. CHI. DDD - Endocrine History Hx Diabetes: Yes Endocrine History Comment: hypothyroidism. hyperparathyroidism. hx of parathyroidectomy with Escobar 2011 - Renal History Hx Renal Disorders: No - Liver History Hx Hepatic Disorders: No - Neurological & Psychiatric Hx Hx Neurological and Psychiatric Disorders: Yes Neurological / Psychiatric History Comment: ADD. anxiety. depression - Cancer History Hx Cancer: Yes Cancer History Comment: MELANOMA R LEG - Congenital Disorder History Hx Congenital Disorders: No - GI History Hx Gastrointestinal Disorders: Yes Gastrointestinal History Comment: GERD. HIATAL HERNIA. DIVERTICULITIS. DIVERTICULOSIS - Other Health History Other Health History: OSTEOPENIA. PRONE TO THRUSH FOLLOWING INTUBATION. wears glasses - Chronic Pain History Chronic Pain: Yes (BACK & NECK) - Surgical History Prior Surgeries: colectomy with tim 12/14/16. CERVICAL FUSION X3. LUMBAR FUSION X2. EGD W/BIOPSY. FIBROIDECTOMY. PARATHYROIDECTOMY with Escobar 17/05 ANE Review of Systems Review of Systems: - Exercise capacity METS (RN): 4 METS ANE Patient History - Allergies Allergies/Adverse Reactions: ciprofloxacin Allergy (Verified 06/19/18 17:31) mirtazapine Allergy (Verified 06/19/18 17:31) Edema of Extremities morphine Allergy (Verified 06/19/18 17:31) one time reaction Penicillins Allergy (Verified 06/19/18 17:31) Rash pregabalin [From Lyrica] Allergy (Verified 06/19/18 17:31) EXTREMITIES EDEMA tramadol Allergy (Verified 06/19/18 17:31) AVOIDS RT WELLBUTRIN - Home Medications Home Medications: Diazepam [Valium 5 MG (*)] 10/20/10 [Last Taken 06/20/18 07:30] buPROPion XL [Wellbutrin 150mg XL] 10/20/10 [Last Taken 06/20/18 07:30] oxyCODONE IR [Oxycodone Ir (*)] 10/20/10 [Last Taken 06/20/18 07:30] Acyclovir [Zovirax 400 mg (*)] TID 12/13/16 [Last Taken 06/20/18 07:30] Albuterol Sulfate [Proair Hfa] PRN 12/13/16 [Last Taken 3 Months Ago ~03/20/18] Budesonide/Formoterol 160/4.5 [Symbicort 160-4.5 Mcg Inh (*)] BID 12/13/16 [ Last Taken 06/20/18 07:30] Fluticasone Nasal [Flonase Nasal Drake] 12/13/16 [Last Taken 06/19/18] Gabapentin [Neurontin 400 MG (*)] 12/13/16 [Last Taken 06/20/18 07:30] Levothyroxine [Synthroid 50 mcg (*)] 12/13/16 [Last Taken 06/20/18 07:30] Ranitidine HCl [Zantac] 12/13/16 [Last Taken 06/19/18] methYLPHENIDATE HCL [Ritalin 10mg (*)] 12/13/16 [Last Taken 06/19/18] Bupropion HCl [Wellbutrin Xl] 12/14/16 [Last Taken 06/19/18] Antabuse 250 MG (*) 06/19/18 [Last Taken 06/18/18] Herbals/Supplements -Info Only 06/19/18 [Last Taken 06/19/18] Pilocarpine HCl 06/19/18 [Last Taken 06/20/18] - NPO status NPO Since - Liquids (Date): 06/20/18 NPO Since - Liquids (Time): 08:30 NPO Since - Solids (Date): 06/19/18 NPO Since - Solids (Time): 23:45 - Anes Hx Anes Hx: no prior problems - Smoking Hx Smoking Status: Light smoker - Alcohol Use Alcohol Use: None - Family Anes Hx Family Anes Hx: none Family Hx Anesthesia Complications: NEG ANE Labs/Vital Signs - Vital Signs Blood Pressure: 154/97 Heart Rate: 64 Respiratory Rate: 16 O2 Sat (%): 94 Height: 163 cm Weight: 68.8 kg ANE Physical Exam - Airway Neck exam: FROM Mallampati Score: Class 2 Mouth exam: normal dental/mouth exam Mouth image: 1 - chipped - Pulmonary Pulmonary: no respiratory distress, clear to auscultation - Cardiovascular Cardiovascular: regular rate and rhythym, no murmur, rub, or gallop - ASA Status ASA Status: III ANE Anesthesia Plan Anesthesia Plan: GA w LMA
[2018-06-20] MEDS ORDERED: MIDAZOLAM 2 MG/2 ML VIAL IVP ONE (11:47)
[2018-06-20] MEDS ORDERED: MIDAZOLAM 2 MG/2 ML VIAL ONE (11:48)
[2018-06-20] MEDS ORDERED: fentaNYL 100 MCG/2 ML INJ ONE ×3 (11:50→13:05)
[2018-06-20] MEDS ORDERED: PROPOFOL 200 MG/20 ML VIAL ONE (11:51)
[2018-06-20] MEDS ORDERED: LIDOCAINE 2% 100 MG/5 ML SYR ONE (11:52)
[2018-06-20] MEDS ORDERED: PROMETHAZINE HCL 25 MG/ML INJ IVP PRN (12:20)
[2018-06-20] MEDS ORDERED: ALBUTEROL 3 ML DEYVIAL IH PRN (12:20)
[2018-06-20] MEDS ORDERED: ONDANSETRON 4 MG/2 ML VIAL IVP PRN (12:20)
[2018-06-20] MEDS ORDERED: NALOXONE HCL 0.4 MG/ML INJ IVP PRN (12:20)
[2018-06-20] MEDS ORDERED: oxyCODONE IR 5 MG TAB PO PRN (12:20)
[2018-06-20] MEDS ORDERED: ACETAMINOPHEN 500 MG TAB PO PRN (12:20)
[2018-06-20] MEDS ORDERED: HYDROCODONE/APAP 5/325 TAB PO PRN (12:20)
[2018-06-20] MEDS ORDERED: DEXAMETHASONE 4 MG/ML VIAL ONE (12:32)
[2018-06-20] MEDS ORDERED: ONDANSETRON 4 MG/2 ML VIAL ONE (12:32)
--- NOTE | 2018-06-20 12:59 | POSTANESTH ---
Post Anesthetic Evaluation Cardiovascular Status: Normal, Stable, Similar to Pre-Op Cond Respiratory Status: Normal, Stable, Similar to Pre-op Cond. Level of Consciousness/Mental Status: Can Participate in Eval, Alert and Oriented Pain Control: Adequate, Prn Tx Ordered Nausea/Vomiting Control: Adequate, Prn Tx Ordered Complications Possibly Related to Anesthesia: None Noted
[2018-06-20] MEDS: fentaNYL 100 MCG/2 ML INJ IVP PRN ×2 (13:06→13:22)
[2018-06-20] MEDS ORDERED: oxyCODONE IR 5 MG TAB ONE ×2 (14:34→14:35)
[2018-06-20 15:37] VITALS: BP 110/72
--- NOTE | 2018-06-20 16:43 | GOP ---
DATE OF OPERATION: 06/20/2018 SURGEON: Meli Grijalva MD ANESTHESIA: General. PREOPERATIVE DIAGNOSIS: 1. Medial meniscus tear, left knee. 2. Lateral meniscus tear, left knee. POSTOPERATIVE DIAGNOSIS: 1. Medial meniscus tear, left knee. 2. Lateral meniscus tear, left knee. PROCEDURE PERFORMED: 1. Left knee arthroscopy with partial medial meniscectomy. 2. Partial lateral meniscectomy. FINDINGS: INDICATIONS: This is a 68-year-old female with symptoms in her knee secondary to the above diagnosis , failing nonoperative treatment, being admitted for surgical care. We have gone over risks, benefit s, and limitations of the procedure preoperatively. DESCRIPTION OF PROCEDURE: After an adequate general anesthetic was obtained and IV antibiotics admin istered, exam under anesthesia revealed full range of motion. Nelia's stable. There was no varus/v algus, posterior or posterolateral laxity. Pivot shift stable. The patient's left lower extremity was placed in a leg-holding device with adequate padding, was prep ped and draped in the usual sterile fashion. The limb was exsanguinated with the Esmarch and tourniq uet elevated to 275 mmHg pressure. Standard supralateral, anteromedial, and anterolateral arthroscop ic portals were established with an 11 blade. A 4 mm 30-degree arthroscope was introduced through th e anterolateral portal, and a systematic examination of the knee was carried out. Suprapatellar pouc h, medial and lateral gutters were normal. The patellar articular surface revealed some shaggy grade 1 to 2 chondromalacia, which required a minimal chondroplasty. There was grade 1 softening in the f emoral trochlea. The ACL and PCL were normal. The lateral compartment was entered. There was grade 1 chondromalacia on the femur and tibia. There was a horizontal cleavage tear at the junction between the middle 1/3 and the posterior horn of the lateral meniscus. A partial lateral meniscectomy was carried out, resecting this back to a stable 5 mm rim. The final rim was contoured and balanced with a small shaver. The medial compartment was entered. There was grade 2 chondromalacia on the medial femoral condyle, grade 1 changes on the tibia. There was a complex tear involving the posterior horn of the medial me niscus. A partial medial meniscectomy was carried out, resecting this back to a stable 3 to 4 mm rim . The final rim was contoured and balanced with a small shaver. The 70-degree scope was introduced posteromedially and posterolaterally, confirming the anterior find ings with no further posterior pathology noted. The knee was irrigated until clear. The portals were closed using 3-0 nylon sutures. 30 cc of 0.25% Marcaine with epinephrine was injected intra-articularly. Sterile dressings were applied followed by an WALDEMAR wrap, and the tourniquet was deflated after 27 dalton nai tourniquet time. There were no complications. The patient tolerated the procedure well and returned to the recovery r oom in stable condition. /[id number]/MODL
== END 2018-06-20 15:30 | disposition home or self-care (01) ==
LOC: FSGY 09:57
PROVIDERS: ATTEND Orthopaedic Surgery Sports Medicine
PROC: 0SBD4ZZ Excision of Left Knee Joint, Percutaneous Endoscopic Approach (ICD-10-PCS; principal; 2018-06-20 11:30)
DX: M23.252 Derangement of posterior horn of lateral meniscus due to old tear or injury, left knee (principal); M23.222 Derangement of posterior horn of medial meniscus due to old tear or injury, left knee
CPT/HCPCS: J0171; J0690; J1100; J2001; J2250; J2405; J2704; J3010

== ENCOUNTER → 2018-07-15 | Outpatient (CLI) | payer OTHER | LOC: BMCIMAGING 11:56 | PROVIDERS: ATTEND Physician Assistant | DX: M81.0 Age-related osteoporosis without current pathological fracture (principal) ==